=== PATIENT | female | born 1990 | race Caucasian/White ===

== ENCOUNTER → 2017-09-02 | Outpatient (CLI) | payer OTHER ==
[~2017-09-02] MED LIST: CEPH500 PO; Ferosul325 MG PO; IBUP800 PO; IRON150C PO; ONDA8 PO; OXYACE5T PO; Verotin-Gr Cap1 EACH PO
[2017-09-03 10:19] LABS: Source VAG/CERVIX
== END | disposition home or self-care (01) ==
LOC: LAB SHORT 12:18 → LAB 12:18
PROVIDERS: Obstetrics & Gynecology
DX: Z01.419 Encounter for gynecological examination (general) (routine) without abnormal findings (principal)
CPT/HCPCS: G0123

== ENCOUNTER → 2022-01-19 | Outpatient (CLI) | payer OTHER | LOC: LAB SHORT 10:07 → LAB 10:07 | DX: M25.431 Effusion, right wrist (principal) | CPT/HCPCS: 84550 ==

== ENCOUNTER → 2024-06-01 | Outpatient (CLI) | payer OTHER ==
[2024-06-01 15:09] LABS: Candida Group, PCR NOT DETECTED (NOT DETECT); Candida glabrata-krusei, PCR NOT DETECTED (NOT DETECT)
[2024-06-01 15:11] LABS: Bacterial Vaginosis PCR Positive (NEGATIVE)
== END | disposition home or self-care (01) ==
LOC: LAB 11:42 → LAB SHORT 11:42
PROVIDERS: Obstetrics & Gynecology
DX: N89.8 Other specified noninflammatory disorders of vagina (principal)
CPT/HCPCS: 81515

== ENCOUNTER 2024-08-12 10:54 | Day surgery (SDC) | payer OTHER ==
[~2024-08-12] VITALS: Ht 154.9 cm; Wt 75.1 kg
[~2024-08-12 10:54] MED LIST changes: +Lactated Ringer's 1,000 ML IV ONE; +Lidocaine 1%-Epineph 1:200000 30 ML SDV ONE; +propofoL 100 ML IV ONE
[2024-08-12] MEDS ORDERED: Acetaminophen 500 MG Tab ONE (10:56)
[2024-08-12] MEDS ORDERED: LevoFLOXacin 500MG/D5W 100ML 100 ML IV ONE (10:57)
[2024-08-12] MEDS ORDERED: Lactated Ringer's 1,000 ML IV ONE ×2 (11:05)
[2024-08-12] MEDS ORDERED: MIRENA1 EAC3 VAG (11:29)
[2024-08-12] MEDS ORDERED: Dexamethasone Sod Phos 10 MG/ML 1ML VIAL ONE (11:50)
[2024-08-12] MEDS ORDERED: Ketorolac Tromethamine 30mg Vial ONE (11:50)
[2024-08-12] MEDS ORDERED: Metoclopramide HCl 5MG / ML 2ML Vial ONE (11:50)
[2024-08-12] MEDS ORDERED: Ondansetron HCl 2 MG / ML 2ML Vial ONE (11:50)
[2024-08-12] MEDS ORDERED: FentaNYL Citrate 50 MCG/ML 2 ML Injection ONE (11:52)
[2024-08-12] MEDS ORDERED: DiphenhydrAMINE HCl 50 MG/ML 1ML Vial ONE (12:13)
[2024-08-12] MEDS ORDERED: Phenylephrine HCl 100 MCG/ML-NS 10MLSYR (1MG/10ML) ONE (12:29)
--- NOTE | 2024-08-12 12:54 | NUR ---
08/12/24 1254 Laura Faria PT ARRIVES TO PACU W/ ORAL AIRWAY IN PLACE, WESTFALL IN PLACE & PATENT, DRAINING CLEAR, YELLOW URINE. REPORT FROM GUSTAVO LUEVANO, & DR. ABRAMS. PT HYPOTENSIVE, DR. ABRAMS MEDICATED. PT ON RA. PERIPAD C/D/I.
[2024-08-12 13:14] VITALS: BP 95/62
--- NOTE | 2024-08-12 13:43 | NUR ---
08/12/24 1343 Alexa Aburto FILL & VOID TRIAL COMPLETED BY GUSTAVO MARTÍNEZ, PER DR. SCHROEDER. PT'S WESTFALL CATHETER CLAMPED & STERILE WATER INJECTED IN 50ML INCREMENTS UNTIL PT FEELS STRONG URGE TO VOID. PT STATES STRONG URGE TO VOID AFTER INJECTING A TOTAL OF 240ML OF STERILE WATER. AT THIS TIME, DEFLATED WESTFALL BALLOON & REMOVED WESTFALL. PT WHEELED TO BATHROOM. PT REQUIRED TO VOID AT LEAST 50% OF TOTAL INJECTED AMOUNT OF 240ML. PT ABLE TO VOID 375ML W/O DIFFICULTY. PT STATES RELIEF IN BLADDER AFTER VOIDING. PT DENIES PAIN/NAUSEA. D/C CRITERIA MET.
== END 2024-08-12 14:01 | disposition home or self-care (01) ==
LOC: ORSCSDS 10:54
PROVIDERS: Obstetrics & Gynecology
PROC: 0TSD0ZZ Reposition Urethra, Open Approach (ICD-10-PCS; principal; 2024-08-12 12:30)
DX: N39.3 Stress incontinence (female) (male) (principal); E28.2 Polycystic ovarian syndrome; Z87.891 Personal history of nicotine dependence; E66.9 Obesity, unspecified; Z68.31 Body mass index [BMI] 31.0-31.9, adult
CPT/HCPCS: A9270; C1771; J1100; J1200; J1885; J1956; J2371; J2405; J2704; J2765; J3010; J7120

== ENCOUNTER → 2024-08-19 | Outpatient (CLI) | payer OTHER ==
[~2024-08-19] MED LIST changes: -Lactated Ringer's 1,000 ML IV ONE; -Lidocaine 1%-Epineph 1:200000 30 ML SDV ONE; +MIRENA1 EAC3 VAG; -propofoL 100 ML IV ONE
[2024-08-19 18:06] LABS: Source, Urine Clean Catch
[2024-08-19 19:17] LABS: Appearance, Urine Hazy (Clear); Bilirubin, Urine Neg (Neg); Blood, Urine 2+ (Neg); Color, Urine Yellow (P-Yellow); Glucose Qualitative, Urine Neg (Neg); Ketones, Urine Neg (Neg); Leukocyte Esterase, Urine 2+ (Neg); Nitrite, Urine Neg (Neg); Protein, Urine Neg (Neg); Urobilinogen, Urine NORM (Normal)
[2024-08-19 19:36] LABS: Bacterial Vaginosis PCR Negative (NEGATIVE); Candida Group, PCR NOT DETECTED (NOT DETECT); Candida glabrata-krusei, PCR NOT DETECTED (NOT DETECT)
[2024-08-19 19:57] LABS: Bacteria Mod /hpf; Red Blood Cells, Urine 0-2 /hpf (0-2); Squamous Epithelial Cells Many /hpf (Few)
== END ==
LOC: LAB SHORT 18:04 → LAB 18:04
PROVIDERS: Obstetrics & Gynecology
DX: N76.0 Acute vaginitis (principal); R30.0 Dysuria
CPT/HCPCS: 81001; 81515; 87086

== ENCOUNTER → 2024-09-22 | Outpatient (CLI) | payer OTHER ==
[2024-09-22 14:06] LABS: Source, Urine Clean Catch
[2024-09-22 17:55] LABS: Appearance, Urine Clear (Clear); Bilirubin, Urine Neg (Neg); Blood, Urine Neg (Neg); Color, Urine Yellow (P-Yellow); Glucose Qualitative, Urine Neg (Neg); Ketones, Urine Neg (Neg); Leukocyte Esterase, Urine 2+ (Neg); Nitrite, Urine Neg (Neg); Protein, Urine Neg (Neg); Urobilinogen, Urine NORM (Normal)
[2024-09-22 18:05] LABS: Bacteria Mod /hpf; Red Blood Cells, Urine 0-2 /hpf (0-2); Squamous Epithelial Cells Few /hpf (Few); Transitional Epithelial Cells Few /hpf (0-Rare)
== END ==
LOC: LAB 14:00 → LAB SHORT 14:00
PROVIDERS: Obstetrics & Gynecology
DX: R35.0 Frequency of micturition (principal)
CPT/HCPCS: 81001; 87086